=== PATIENT | male | born 1980 | race Caucasian/White ===

== ENCOUNTER 2018-03-25 14:19 | Emergency (ER) | payer OTHER, SELFPAY ==
[2018-03-25 14:22] VITALS: BP 142/86; PULSE 95; RESP 14; TEMP 36.4; O2SAT 99; BMI 30.4
[2018-03-25 18:07] VITALS: BP 125/66; PULSE 73; RESP 15; O2SAT 98
--- NOTE | 2018-03-25 18:47 | ED.EYEPROB ---
HPI - Eye Problem General Chief complaint: Eye Problems Stated complaint: Stick in eye Time Seen by Provider: 03/25/18 18:08 Source: patient Mode of arrival: ambulatory Limitations: no limitations History of Present Illness HPI Narrative: Patient is a 37-year-old male who presents with right eye pain. He was wearing safety glasses and a face mask while clearing out raspberry bushes. Unfortunately a branch got into his right eye. He has photosensitivity and pain. He does not wear contacts. Denies any visual changes. MD chief complaint: eye pain, eye redness and eye injury Onset (ago): hour(s) Onset description: sudden Duration: constant Location: right eye Eye Symptoms: redness and pain Mechanism: direct trauma Severity: moderate Related Data Previous Rx's Medication Instructions Recorded gentamicin 2 drop EYE-RIGHT Q4HRWA #5 ml 03/25/18 hydrocodone-acetaminophen [[place]] 1 tab PO Q6H PRN #10 tab 03/25/18 Allergies Allergy/AdvReac Type Severity Reaction Status Date / Time No Known Drug Allergies Allergy Verified 03/25/18 14:22 Review of Systems Review of Systems GENERAL: Denies chills,fever HEENT: Right eye pain, see HPI Denies throat pain RESPIRATORY: Denies dyspnea, cough, wheezing CARDIOVASCULAR: Denies chest pain, palpitations GASTROINTESTINAL: Denies nausea, vomiting MUSCULOSKELETAL: Denies extremity pain, injury SKIN: No rash, no laceration, no pruritus NEUROLOGIC: Denies weakness, dizziness, headache, numbness 8 point review of systems is negative except for those stated above and HPI PFSH Medical History Patient denies significant medical history (Acute) Social History Smoking Status: Never smoker Social History Smoking Status: Never smoker Exam Initial Vital Signs Initial Vital Signs: Vital Signs Temperature 97.5 F L 03/25/18 14:22 Pulse Rate 95 H 03/25/18 14:22 Respiratory Rate 14 03/25/18 14:22 Blood Pressure 142/86 H 03/25/18 14:22 Pulse Oximetry 99 03/25/18 14:22 GENERAL: Well-appearing, well-nourished and in no acute distress. CARDIOVASCULAR: peripheral pulses in tact, cap refill <2 sec RESPIRATORY: No respiratory distress, speaks in full sentences without difficulty EXTREMITIES: Normal range of motion, no clubbing or edema. Neurovascularly intact NEUROLOGICAL: Cranial nerves II through XII grossly intact. Normal gait and speech. SKIN: Warm, dry, no petechiae, no rashes or lesions. Eyes General: appearance normal, both eyes and all related structures Alignment and Position: alignment normal Periorbital: periorbital findings normal Eyelids: eyelids normal Conjunctivae: conjunctival abnormality right conjunctival injection diffuse Cornea: corneas abnormal on the right fluorescein used and abrasion central Pupils: PERRL EOM: EOM intact bilaterally Course Orders Ordered: Discontinued Medications Diphtheria/Tetanus/Acell Pertussis (Adacel) 0.5 ml IM .ONCE ONE Stop: 03/25/18 18:47 Last Admin: 03/25/18 18:58 Dose: 0.5 ml Proparacaine HCl (Parcaine 0.5% Ophth Sandra) 1 drops EYE-RIGHT NOW ONE Stop: 03/25/18 18:57 Last Admin: 03/25/18 18:57 Dose: 1 drop Vital Signs - 8 hr 03/25/18 19:12 Pulse Rate 77 Respiratory Rate 19 Blood Pressure [Left Arm] 133/64 Pulse Oximetry 98 Discharge Plan Departure Patient Disposition: Home Clinical Impression: Corneal abrasion Qualifiers: Encounter type: initial encounter Laterality: right Qualified Code(s): S05.01XA - Injury of conjunctiva and corneal abrasion without foreign body, right eye, initial encounter Discharge Date/Time: 03/25/18 19:30 Interventions: ED Discharge Assessment Last Done: 03/25/18 19:30 Instructions: Corneal Abrasion Activity Restrictions/Additional Instructions: *You have been diagnosed with right corneal abrasion *What to do: This should start to heal in the next 2-3 days. No contacts for 1 week until this is healed. *Continue to take medications as directed Gentamicin eyedrops 1-2 drops right eye every 4 hr while awake Motrin 800 mg every 8 hr if needed for pain during the day [place] 1 tablet every 6 hr or at nighttime if needed for severe pain *Follow up with your primary care provider in 2-3 days *Return to ER if you should have change in vision, worsening pain or any new, worsening or concerning symptoms CONTROLLED SUBSTANCE DISCHARGE (Narcotoic/benzodiazepine/Flexeril/Phenergan) 1. You have been prescribed narcotic medications, it does have acetaminophen/Tylenol/paracetamol in it so do not take extra Tylenol or Tylenol containing products 2. Please understand that we cannot provide further refills of narcotics, benzodiazepines or controlled substances through the ED and her pain management will need to be through your provider. 3. While on these medications you cannot drive or operate heavy machinery. 4. You cannot sign legal documents or perform any duties such as this. 5. As long as you're taking opiate pain medications he should also be taking a stool softener such as Colace, Dulcolax, MiraLAX or prune juice, to help avoid constipation. Prescriptions: New hydrocodone-acetaminophen [[place]] 5-325 mg tablet 1 tab PO Q6H PRN (Reason: pain) Qty: 10 RF: 0 gentamicin 0.3 % drops 2 drop EYE-RIGHT Q4HRWA Qty: 5 RF: 0 Referrals: [facility] [Provider Group] [facility] [Provider Group] [facility] [Provider Group]
[2018-03-25] MEDS: PROPARACAINE 0.5% OPHTH SOL 1 DROPS EYE-RIGHT (18:57)
[2018-03-25] MEDS: TET,DIPH,PERTUSS(ACELL),VAC/PF 0.5 ML SYRINGE IM (18:58)
[2018-03-25 19:12] VITALS: BP 133/64; PULSE 77; RESP 19; O2SAT 98
== END 2018-03-25 19:30 | disposition home or self-care (01) ==
PROVIDERS: Emergency Provider Emergency Medicine
DX: S05.01XA Injury of conjunctiva and corneal abrasion without foreign body, right eye, initial encounter (principal); W22.8XXA Striking against or struck by other objects, initial encounter
CPT/HCPCS: 90471; 99283; 90715

== ENCOUNTER 2018-03-26 08:34 | Emergency (ER) | payer OTHER, SELFPAY ==
[2018-03-26 08:45] VITALS: BP 146/84; PULSE 80; RESP 15; TEMP 36.7; O2SAT 100; BMI 30.4
--- NOTE | 2018-03-26 08:52 | ED_ITS ---
HPI - Eye Problem General Chief complaint: Eye Problems Stated complaint: RIGHT EYE DISCHARGE Time Seen by Provider: 03/26/18 08:40 Source: patient and old records reviewed Mode of arrival: ambulatory Limitations: no limitations History of Present Illness HPI Narrative: This is a 37-year-old male comes to the emergency department with complaint of right eye pain and discharge. Patient was seen here last night, he was at work, had safety goggles had a face mask on about a black tarry branch scratched his eye. Patient was seen noted to have a corneal abrasion and started on gentamicin eyedrops. He had them in last night but has not had any in since then. He woke up and his eye was stuck closed any head discharge. States continues to have pain although not as significant as yesterday. He has noticed maybe some swelling of the eyelid but no significant swelling of the face. He has some slight decreased/proneness in the vision yesterday but is unsure about today. He does normally wear glasses, he does not wear contacts. He sees someone for his glasses in [place]. He denies any other past medical history, no prior surgeries. His tetanus was updated yesterday. Patient denies any allergies. Related Data Previous Rx's Medication Instructions Recorded gentamicin 2 drop EYE-RIGHT Q4HRWA #5 ml 03/25/18 hydrocodone-acetaminophen [[place]] 1 tab PO Q6H PRN #10 tab 03/25/18 Allergies Allergy/AdvReac Type Severity Reaction Status Date / Time No Known Drug Allergies Allergy Verified 03/26/18 08:45 Review of Systems Review of Systems ROS Unobtainable: All systems reviewed & are unremarkable except as noted in HPI and below Eyes Reports blurry vision, Reports eye discharge and Reports eye pain Integumentary/Breasts Denies erythema and Denies rash PFSH Medical History Patient denies significant medical history (Acute) Social History Smoking Status: Never smoker Social History Smoking Status: Never smoker Exam Narrative Exam Narrative: GEN: well nourished, well appearing male, alert and oriented x 3, patient appears to be in mild distress. HEENT: Atraumatic, pupils are equal round reactive to light, extraocular movements are intact, nares are clear, there is no conjunctival pallor. There is matting of lashes, clears easily with warm compress. Sligh whitish discoloration. Throat is clear without any exudates, erythema, tonsillar enlargement or uvular deviation. Visual acuity: 20/70 right, 20/20 left, 20/25 both. patient wearing glasses for acuity exam. General: no globe trauma Eyelids: normal inspection, except for some thinned whitish to clear drainage in the eyelashes. Conjunctiva/Sclera: Left conjunctiva/sclera noninjected, right is slightly injected. Corneas: normal inspection, examined with fluroscein on right, patient has small abrasion centrally, no globe trauma, no clear sign of ulceration. EOM: intact, no palsy/entrapment Pupils: PERRL, normal accomadation, pupil normal Anterior Chambers: normal inspection, no hypema Posterior: normal fundoscopic on right. MSCL: full range of motion, normal gait NEURO:CN 2-12 intact, sensation normal Initial Vital Signs Initial Vital Signs: Vital Signs Temperature 98.0 F 03/26/18 08:45 Pulse Rate 80 03/26/18 08:45 Respiratory Rate 15 03/26/18 08:45 Blood Pressure 146/84 H 03/26/18 08:45 Pulse Oximetry 100 03/26/18 08:45 Course Vital Signs - 8 hr 03/26/18 08:45 Temperature 98.0 F Pulse Rate 80 Respiratory Rate 15 Blood Pressure 146/84 H Pulse Oximetry 100 MDM - Eye Problem MDM Narrative Medical decision making narrative: Chart reviewed from visit yesterday. Patient on gentamicin gtts. Patient does not have any signs of periorbital cellulitis of the eye. vision improved from yesterday on acuity testing. Discussed with Dr. Garcia from Ophthalmology. They are happy to see him in the office and will change antibiotics as needed once evaluated. Patient headed directly over for evaluation. Discharge Plan Departure Patient Disposition: Home Clinical Impression: Corneal abrasion Activity Restrictions/Additional Instructions: Go directly to the ophthalmology office. Dr. Garcia or one of his associates will see this morning. They may change your antibiotic eyedrops. But keep your eye drops until you see them. Continue pain medications as prescribed. CONTROLLED SUBSTANCE DISCHARGE (Narcotoic/benzodiazepine/Flexeril/Phenergan) 1. You have been prescribed narcotic medications, it does have acetaminophen/Tylenol/paracetamol in it so do not take extra Tylenol or Tylenol containing products 2. Please understand that we cannot provide further refills of narcotics, benzodiazepines or controlled substances through the ED and her pain management will need to be through your provider. 3. While on these medications you cannot drive or operate heavy machinery. 4. You cannot sign legal documents or perform any duties such as this. 5. As long as you're taking opiate pain medications he should also be taking a stool softener such as Colace, Dulcolax, MiraLAX or prune juice, to help avoid constipation. Prescriptions: No Action hydrocodone-acetaminophen [[place]] 5-325 mg tablet 1 tab PO Q6H PRN (Reason: pain) Qty: 10 RF: 0 gentamicin 0.3 % drops 2 drop EYE-RIGHT Q4HRWA Qty: 5 RF: 0 Referrals: Dheeraj Garcia MD [Physician] -
== END 2018-03-26 09:24 | disposition home or self-care (01) ==
PROVIDERS: Emergency Provider Emergency Medicine
DX: S05.01XA Injury of conjunctiva and corneal abrasion without foreign body, right eye, initial encounter (principal); W22.8XXA Striking against or struck by other objects, initial encounter; Y99.0 Civilian activity done for income or pay
CPT/HCPCS: 99283

== ENCOUNTER → 2019-02-07 13:46 | Outpatient (CLI) | payer OTHER, SELFPAY ==
--- NOTE | 2019-02-07 13:49 | DI.US.S_ITS ---
PROCEDURE: US ABDOMEN LIMITED INDICATIONS: R sided maksim and bulge, r/o r inguinal rectus abd hernia TECHNIQUE: Real-time focused scanning was performed of the inguinal region, with image documentation. COMPARISON: None. FINDINGS: None right inguinal hernia or other right groin abnormality seen. There is a prominent morphologically normal appearing lymph node measuring up to 7 mm in maximal short axis. IMPRESSION: 1. No right inguinal hernia. 2. Morphologically normal-appearing right groin lymph node. Dictated by: Mason Boss [facility] Interpreted: Donna Batista MD on 02/07/2019 at 16:45 Approved by: Donna Batista MD, PhD on 02/07/2019 at 17:05
== END ==
PROVIDERS: Visit Provider Nurse Practitioner
DX: R10.31 Right lower quadrant pain (principal)
CPT/HCPCS: 76705

== ENCOUNTER → 2023-05-14 19:18 | Outpatient (CLI) | payer OTHER, SELFPAY ==
--- NOTE | 2023-05-14 | DI.MRI.S_ITS ---
PROCEDURE: MR KNEE RT WO CON INDICATIONS: INTERNAL DE TECHNIQUE: Noncontrast sagittal PD fast spin echo and T2 fast spin echo with fat saturation, sagittal 3-D FLASH with fat saturation; coronal T1 spin echo and PD fast spin echo with fat saturation, and axial PD fast spin echo with fat saturation through the knee. COMPARISON: [facility] Outside Film, CR, XR KNEE 1 OR 2 VIEWS RIGHT, 05/09/2022, 13:45. FINDINGS: Image quality: Diagnostic Menisci: Medial: Intact. Meniscocapusular junction maintained. Lateral: Mild internal signal abnormality without discrete significant tear Cruciate ligaments: Intact Medial structures: MCL: Intact Pes anserine tendons: Intact Semimembranosus: Intact Lateral structures: LCL: Intact Biceps femoris: Intact IT band: Intact Popliteus tendon: [id number] insertional tendinopathy Anterior structures: Extensor mechanism: Intact Fat pads: [id number] prepatellar soft tissue edema. Mild Hoffa's fat pad edema in the superolateral corner. Medial retinaculum: Intact. Trochlea: Unremarkable morphology. Bone and joint: Bones: No acute fracture Cartilage: There is focal fissuring and subchondral edema in the median ridge of the patella. No full-thickness defect is seen elsewhere. Overall minimal degenerative changes otherwise Joint space: Trace joint effusion Bailey's cyst: None Soft tissues: No significant vascular or other soft tissue pathology. IMPRESSION: No discrete meniscal tear. The cruciate and collateral ligaments appear intact. Focal fissuring and small subchondral edema in the median ridge of the patella. No high-grade degenerative changes otherwise. [id number] prepatellar soft tissue swelling without drainable fluid collection. There is also mild focal edema in the superolateral corner of Hoffa's fat pad, nonspecific, sometimes seen with maltracking. Trace joint effusion. Dictated by: Minh Velasco M.D. on 05/15/2023 at 9:15 Approved by: Minh Velasco M.D. on 05/15/2023 at 9:21
== END ==
PROVIDERS: Referring Provider Physical Medicine & Rehabilitation Pain Medicine; Visit Provider Physical Medicine & Rehabilitation Pain Medicine
DX: M23.91 Unspecified internal derangement of right knee (principal); M79.89 Other specified soft tissue disorders; R60.0 Localized edema
CPT/HCPCS: 73721